=== PATIENT | male | born 1940 | race Caucasian/White ===

== ENCOUNTER → 2017-09-11 | Outpatient (CLI) | payer MEDICARE, OTHER ==
--- NOTE | 2017-09-12 10:39 | RADIOLOGY REPORT (SQ) ---
EXAM DESCRIPTION: PET CT SKULL/THIGH COMPLETED DATE/TIME: 09/11/2017 9:28 pm REASON FOR STUDY: RENAL CANCER C64.2 MALIGNANT NEOPLASM OF LEFT KIDNEY, EXCEPT RENAL PELVIS COMPARISON: CT abdomen pelvis 05/07/2011, 09/12/2012, 11/22/2012 RADIONUCLIDE AND DOSE: 9.1 mCi F18 FDG The route of agent administration: Intravenous FASTING BLOOD SUGAR: 126 mg/dl CONTRAST TYPE AND DOSE: No CT contrast given. TECHNIQUE: Blood glucose level was verified. Above dose of FDG was injected intravenously. 2-D seg mented attenuation correction images were obtained from the base of the skull to the midthighs. Nonc ontrast CT images were obtained for attenuation correction and fusion with emission images. CT image s were performed without oral or intravenous contrast and are not sensitive for parenchymal lesions. A series of overlapping emission PET images were obtained. Images reviewed and manipulated at [facility] work station by the radiologist. Images stored on PACS. LIMITATIONS: None. FINDINGS: HEAD AND NECK: No areas of abnormal metabolic activity in the soft tissues of the head and neck. CHEST: No areas of abnormal metabolic activity in the chest. ABDOMEN AND PELVIS: A large left renal mass is present encompassing nearly the entire kidney. There is a thrombosed left retroaortic renal vein on axial image 152, distended with tumor measuring at [address] st 3 cm in diameter. Inferior vena cava at the level of the left renal vein is 4 cm in diameter, wor risome for IVC tumor thrombosis. There is extensive surrounding adenopathy in the left very renal sp [place], multiple large vascular collaterals, and bulky retroperitoneal aortocaval adenopathy. The mass, adenopathy, and tumor thrombus in the left renal vein has SUV ranging from 2.4 to 4.0. PROXIMAL LOWER EXTREMITIES: No areas of abnormal metabolic activity in the soft tissues of the lower extremities. BONES: No abnormal metabolic activity in the visualized skeleton. ADDITIONAL CT FINDINGS: Coronary artery calcifications. Calcified gallstones. Trace right pleural e ffusion. Left hemicolectomy OTHER: Liver background activity 1.7 SUV. Blood pool background activity 1.3 SUV. IMPRESSION: Huge left renal mass worrisome for renal cell carcinoma with extensive local involvement . 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 No hypermetabolic metastatic lesions are identified TECHNICAL DOCUMENTATION: JOB ID: [id number]- All Rights Reserved Reading location - IP/workstation name: [email or web address]
== END ==
LOC: RAD 17:57
PROVIDERS: ATTEND Internal Medicine
DX: C64.2 Malignant neoplasm of left kidney, except renal pelvis (principal); K80.80 Other cholelithiasis without obstruction; J90 Pleural effusion, not elsewhere classified; Z90.49 Acquired absence of other specified parts of digestive tract
CPT/HCPCS: 78815; A9552